=== PATIENT | female | born 1955 | race Caucasian/White ===

== ENCOUNTER → 2024-05-02 | Outpatient (CLI) | payer MEDICARE, BC, SELFPAY ==
--- NOTE | 2024-05-02 16:01 | XR_ITS ---
Examination: PA lateral chest 2 views Technique: Upright PA lateral chest 2 views Exam date and time: May 02, 2024 1614 Indication: Coughing beginning 2.5 months ago. Findings: Normal heart size No lobar pneumonia or pulmonary edema Significant osteopenia, lower cervicothoracic plate Impression: No pneumonia or pulmonary edema
== END | disposition home or self-care (01) ==
LOC: CDIM 15:54
PROVIDERS: PCP Family Medicine; Referring Provider Nurse Practitioner Family; Visit Provider Nurse Practitioner Family
DX: R06.02 Shortness of breath (principal); R05.9 Cough, unspecified
CPT/HCPCS: 71046

== ENCOUNTER → 2024-09-19 | Outpatient (CLI) | payer MEDICARE, BC, SELFPAY ==
--- NOTE | 2024-09-19 12:45 | XR_ITS ---
Examination: Foot bilateral, 6 views Technique: AP, oblique, lateral views each foot total 6 views Date and time of exam: September 19, 2024 1359 hours INDICATIONS: History bunion deformities and bilateral foot pain 8 years. FINDINGS: Status post right bunionectomy and first metatarsal osteotomy with satisfactory alignment Moderate narrowing first right metatarsophalangeal joint Healed fracture right fifth metatarsal Status post left foot first metatarsal osteotomy Moderate bunion deformity Moderate narrowing first metatarsophalangeal joint Old fracture distal fifth metatarsal IMPRESSION: Status post right bunionectomy with satisfactory alignment Status post osteotomies first metatarsals with satisfactory alignment
== END | disposition home or self-care (01) ==
LOC: CDIM 12:25
PROVIDERS: PCP Family Medicine; Referring Provider Podiatrist; Visit Provider Podiatrist
DX: M79.672 Pain in left foot (principal); M79.671 Pain in right foot; Z98.890 Other specified postprocedural states
CPT/HCPCS: 73630